=== PATIENT | female | born 1995 | race Two or more races ===

== ENCOUNTER 2023-11-24 18:40 | Inpatient (IN) | payer OTHER ==
[2023-11-24 19:21] VITALS: BMI 25.8
[2023-11-24] MEDS ORDERED: MAG HYDROX/AL HYDROX/SIMETH 30 ML UNIT-DOSE CUP PO PRN (19:59)
[2023-11-24] MEDS ORDERED: MAGNESIUM HYDROX 2400MG/30ML ORAL SUSPENSION 30 ML CUP PO PRN (19:59)
[2023-11-24] MEDS ORDERED: BENZONATATE 200 MG CAPSULE PO PRN (19:59)
[2023-11-24] MEDS ORDERED: guaiFENesin 600 MG TABLET.ER (FP) PO PRN (19:59)
[2023-11-24] MEDS ORDERED: BENZOCAINE/MENTHOL (CHLORASEPTIC ) LOZENGE MM PRN (19:59)
[2023-11-24] MEDS ORDERED: LOPERAMIDE HCL 2 MG CAPSULE PO PRN (19:59)
[2023-11-24] MEDS ORDERED: IBUPROFEN 400 MG TABLET (FP) PO PRN (19:59)
[2023-11-24] MEDS ORDERED: NALOXONE HCL 0.4 MG/ML VIAL IM PRN (19:59)
[2023-11-24] MEDS ORDERED: ACETAMINOPHEN 325 MG TABLET (FP) PO PRN (19:59)
[2023-11-24] MEDS ORDERED: NICOTINE POLACRILEX 4 MG GUM BUC PRN (19:59)
[2023-11-24] MEDS ORDERED: POLYETHYLENE GLYCOL (HEALTHYLAX) 3350 17 GM PACKET PO PRN (19:59)
[2023-11-24] MEDS ORDERED: NALOXONE (NARCAN) HCL 4 MG/0.1 ML SPRAY NS PRN (19:59)
[2023-11-24] MEDS ORDERED: IBUPROFEN 600 MG TABLET (FP) PO PRN (19:59)
[2023-11-24] MEDS ORDERED: PERMETHRIN 5% TOPICAL CREAM 60 GM TUBE ONE (20:33)
[2023-11-24] MEDS: PERMETHRIN 5% TOPICAL CREAM 60 GM TUBE TP ONE (20:35)
[2023-11-24] MEDS ORDERED: TUBERCULIN PPD 5 TU/0.1ML VIAL ID ONE (21:45)
[2023-11-24] MEDS: MELATONIN 5 MG TABLETS PO SCH (21:48)
[2023-11-24] MEDS: THIAMINE 100 MG TABLET PO SCH (21:49)
[2023-11-24] MEDS: TUBERCULIN PPD 5 TU/0.1ML SYRINGE (IN PATIENT USE ONLY) ID ONE (21:49)
[2023-11-25] MEDS: hydrOXYzine PAMOATE 25 MG CAPSULE (FP) PO PRN (09:34)
[2023-11-25] MEDS: SPIRONOLACTONE 25 MG TABLET PO SCH (10:00)
[2023-11-25] MEDS: BICTEGRAV/EMTRICIT/TENOFOV (BIKTARVY) 50-200-25 MG TABLET PO SCH (11:00)
[2023-11-25] MEDS: NICOTINE 21 MG/24 HOURS TOPICAL PATCH TD SCH (11:00)
[2023-11-25] MEDS: PRENATAL VITAMINS W/ FOLIC ACID TABLET (FP) PO SCH (11:00)
[2023-11-25] MEDS: ESTRADIOL 2 MG TABLET (NON-FORMULARY) PO SCH (11:00)
[2023-11-25] MEDS: FINASTERIDE 5 MG TABLET (FP) PO SCH (11:30)
[2023-11-25] MEDS: risperiDONE 1 MG TABLET PO SCH (23:42)
[2023-11-29] MEDS: BICTEGRAV/EMTRICIT/TENOFOV (BIKTARVY) 50-200-25 MG TABLET PO SCH (06:33)
[2023-11-29 06:49] VITALS: RESP 18
[2023-11-29 23:51] LABS: URINE APPEARANCE CLEAR; URINE BILIRUBIN NEGATIVE (NEGATIVE); URINE COLOR YELLOW; URINE GLUCOSE (UA) NEGATIVE (NEGATIVE); URINE KETONE NEGATIVE (NEGATIVE); URINE LEUK ESTERASE NEGATIVE (NEGATIVE); URINE NITRITE NEGATIVE (NEGATIVE); URINE PROTEIN NEGATIVE (NEGATIVE); URINE UROBILINOGEN 0.2 mg/dL (0.2-1.0)
[2023-12-02 07:31] VITALS: TEMP 96
[2023-12-02 10:57] VITALS: BP 108/76; PULSE 96
== END 2023-12-02 16:30 | disposition home or self-care (01) | DRG 772 ==
LOC: YASAS 18:40 → Y5N 21:22
PROVIDERS: ADMIT Allergy & Immunology; ATTEND Psychiatry & Neurology Pain Medicine
PROC: HZ42ZZZ Group Counseling for Substance Abuse Treatment, Cognitive-Behavioral (ICD-10-PCS; principal; 2023-11-24)
DX: F15.20 Other stimulant dependence, uncomplicated (principal); F17.210 Nicotine dependence, cigarettes, uncomplicated; F25.9 Schizoaffective disorder, unspecified; F31.9 Bipolar disorder, unspecified; F15.259 Other stimulant dependence with stimulant-induced psychotic disorder, unspecified; F64.0 Transsexualism; Z21 Asymptomatic human immunodeficiency virus [HIV] infection status; E78.5 Hyperlipidemia, unspecified; I10 Essential (primary) hypertension; Z79.899 Other long term (current) drug therapy; Z88.8 Allergy status to other drugs, medicaments and biological substances
CPT/HCPCS: 80305; 81003; 87811; 93005; 93010